=== PATIENT | male | born 1995 | race Caucasian/White ===

== ENCOUNTER 2017-07-14 00:35 | Emergency (ER) | payer OTHER, SELFPAY ==
[2017-07-14] MEDS: LORazepam 1 MG TAB PO (01:27)
== END 2017-07-14 01:57 | disposition home or self-care (01) ==
LOC: M ED 00:35
DX: T39.311A Poisoning by propionic acid derivatives, accidental (unintentional), initial encounter (principal); Y92.9 Unspecified place or not applicable; Y93.9 Activity, unspecified; R00.0 Tachycardia, unspecified; G43.909 Migraine, unspecified, not intractable, without status migrainosus; F17.200 Nicotine dependence, unspecified, uncomplicated; F12.10 Cannabis abuse, uncomplicated
CPT/HCPCS: 93005

== ENCOUNTER 2018-11-03 18:23 | Emergency (ER) | payer OTHER, SELFPAY ==
[~2018-11-03] VITALS: Ht 190.5 cm; Wt 112.6 kg
[2018-11-03 22:33] VITALS: BP 139/76
[2018-11-03] MEDS ORDERED: IBUP-1022 PO (23:05)
[2018-11-03] MEDS ORDERED: IBUPROFEN 600 MG TAB PO ONE (23:15)
--- NOTE | 2018-11-04 07:21 | REP ---
Clinical: Trauma. Technique: AP, lateral, bilateral oblique views of the right hand. Findings: There is a transverse mildly angulated fracture through the mid fifth metacarpal shaft with overlying soft tissue swelling (boxer's fracture). No other fracture dislocation. Impression: Boxer's fracture of the fifth metacarpal bone. Electronically Signed by Salinas Olmedo MD 11/03/2018 06:46 P
== END 2018-11-03 23:15 | disposition home or self-care (01) ==
LOC: M ED 18:23
DX: S62.398A Other fracture of other metacarpal bone, initial encounter for closed fracture (principal); W22.8XXA Striking against or struck by other objects, initial encounter; Y92.099 Unspecified place in other non-institutional residence as the place of occurrence of the external cause; Y93.9 Activity, unspecified; Y99.9 Unspecified external cause status; F17.200 Nicotine dependence, unspecified, uncomplicated

== ENCOUNTER → 2019-04-18 | Outpatient (REF) | payer OTHER ==
[~2019-04-18] MED LIST: IBUP-1022 PO
[2019-04-18 17:08] LABS: INFLUENZA A AMPLIFICATION NEGATIVE (NEGATIVE); INFLUENZA B AMPLIFICATION POSITIVE (NEGATIVE)
== END ==
LOC: M LAB REF 16:13
PROVIDERS: ATTEND Physician Assistant
DX: J11.1 Influenza due to unidentified influenza virus with other respiratory manifestations (principal)

== ENCOUNTER 2019-10-25 21:51 | Emergency (ER) | payer OTHER ==
[~2019-10-25] VITALS: Ht 190.5 cm; Wt 112.8 kg
[2019-10-26] MEDS ORDERED: BENZOCAINE 10% 9GM TUBE (ANBESOL) TOP STA (00:55)
[2019-10-26] MEDS ORDERED: AUGM875T28 PO (00:58)
[2019-10-26] MEDS ORDERED: SELE25SHA TOP (00:58)
[2019-10-26] MEDS ORDERED: AUGMENTIN 875 MG TAB PO ONE (01:00)
[2019-10-26 01:14] VITALS: BP 149/87
== END 2019-10-26 01:21 | disposition home or self-care (01) ==
LOC: M ED 21:51
DX: K04.7 Periapical abscess without sinus (principal); B36.0 Pityriasis versicolor

== ENCOUNTER → 2021-12-29 | Outpatient (REF) | payer OTHER ==
[~2021-12-29] MED LIST changes: +AUGM875T28 PO; +SELE25SHA TOP
[2021-12-29 17:33] LABS: BASO % 0.4 % (0.0-1.0); EOS % 0.4 % (0.0-3.0); HEMATOCRIT 46.5 % (42.0-52.0); HEMOGLOBIN 15.5 g/dl (13.5-17.5); LYMPH # 1.6 10^3/uL (1.5-5.0); MEAN CORPUSCULAR HEMOGLOBIN 29.6 pg (27.0-33.0); MEAN CORPUSCULAR HGB CONC 33.3 g/dl (32.0-36.5); MEAN CORPUSCULAR VOLUME 88.7 fl (80.0-96.0); MONO # 0.6 10^3/uL (0.0-0.8); MONO % 6.2 % (2.0-8.0); NEUTROPHILS # 7.5 10^3/uL (1.5-8.5); NEUTROPHILS % 76.7 % (36.0-66.0); PLATELET COUNT, AUTOMATED 298 10^3/uL (150-450); RED BLOOD COUNT 5.24 10^6/uL (4.30-6.10); WHITE BLOOD COUNT 9.7 10^3/uL (4.0-10.0)
[2021-12-29 18:18] LABS: ALBUMIN 4.4 GM/DL (3.2-5.2); ALT/SGPT 39 U/L (12-78); BILIRUBIN,TOTAL 0.6 MG/DL (0.2-1.0); BLOOD UREA NITROGEN 12 MG/DL (7-18); CALCIUM LEVEL 9.6 MG/DL (8.5-10.1); CARBON DIOXIDE LEVEL 28 MEQ/L (21-32); CHLORIDE LEVEL 102 MEQ/L (98-107); CHOLESTEROL LEVEL 158 MG/DL (<200); CHOLESTEROL RISK RATIO 4.388 (<5); CREATININE FOR GFR 0.87 MG/DL (0.70-1.30); GLOMERULAR FILTRATION RATE > 60.0 (>60); GLUCOSE, FASTING 90 MG/DL (70-100); HDL CHOLESTEROL 36 MG/DL (>40); LDL CHOLESTEROL 100 MG/DL (<100); NON-HDL-C 122 MG/DL; POTASSIUM SERUM 4.6 MEQ/L (3.5-5.1); SODIUM LEVEL 135 MEQ/L (136-145); TOTAL PROTEIN 7.8 GM/DL (6.4-8.2); TRIGLYCERIDES LEVEL 108 MG/DL (<150)
== END ==
LOC: M LAB REF 16:41
PROVIDERS: ATTEND Family Medicine Addiction Medicine
DX: Z00.00 Encounter for general adult medical examination without abnormal findings (principal)

== ENCOUNTER 2022-01-28 12:09 | Inpatient (IN) | payer MEDICAID, OTHER ==
[~2022-01-28] VITALS: Ht 190.5 cm; Wt 107.3 kg
[2022-01-28 14:46] LABS: HEMOGLOBIN 15.5 g/dl (13.5-17.5); MEAN CORPUSCULAR HGB CONC 34.4 g/dl (32.0-36.5); MEAN CORPUSCULAR VOLUME 87.2 fl (80.0-96.0); PLATELET COUNT, AUTOMATED 282 10^3/uL (150-450); RED BLOOD COUNT 5.16 10^6/uL (4.30-6.10); WHITE BLOOD COUNT 12.9 10^3/uL (4.0-10.0)
[2022-01-28 15:04] LABS: AMPHETAMINES LEVEL URINE NEGATIVE (NEGATIVE); BARBITURATES URINE NEGATIVE (NEGATIVE); BENZODIAZEPINES URINE NEGATIVE (NEGATIVE); COCAINE METABOLITE URINE NEGATIVE (NEGATIVE); PHENCYCLIDINE URINE NEGATIVE (NEGATIVE)
[2022-01-28 15:05] LABS: METHADONE URINE NEGATIVE (NEGATIVE); OPIATES URINE NEGATIVE (NEGATIVE)
[2022-01-28 15:06] LABS: ETHYL ALCOHOL (ETHANOL) 0.003 % (0.000-0.010)
[2022-01-28 15:07] LABS: BILIRUBIN,DIRECT 0.2 MG/DL (<0.4); CANNABINOIDS URINE POSITIVE (NEGATIVE)
[2022-01-28 15:08] LABS: ACETAMINOPHEN LEVEL < 2.0 UG/ML (10.0-20.0); ALBUMIN 4.4 G/DL (3.2-5.2); ALKALINE PHOSPHATASE 67 U/L (46-116); ALT/SGPT 43 U/L (7.0-40); AST/SGOT 25 U/L (<34); BILIRUBIN,TOTAL 0.6 MG/DL (0.3-1.2); BLOOD UREA NITROGEN 11 MG/DL (9-23); CALCIUM LEVEL 9.4 MG/DL (8.5-10.1); CARBON DIOXIDE LEVEL 28 MMOL/L (20-31); CHLORIDE LEVEL 104 MMOL/L (98-107); CREATININE FOR GFR 0.69 MG/DL (0.70-1.30); GLOMERULAR FILTRATION RATE > 60.0 (>60); GLUCOSE, FASTING 99 MG/DL (60-100); POTASSIUM SERUM 4.7 MMOL/L (3.5-5.1); SALICYLATE LEVEL < 3.0 MG/DL (<30); SODIUM LEVEL 139 MMOL/L (136-145); TOTAL PROTEIN 7.6 G/DL (5.7-8.2)
[2022-01-28 15:10] LABS: THYROID STIMULATING HORMONE 3.162 uIU/ML (0.55-4.78)
[2022-01-28 15:19] LABS: RSV AMPLIFICATION NEGATIVE (NEGATIVE)
[2022-01-28] MEDS ORDERED: HOME MED LIST COMPLETE! XX SCH (17:05)
[2022-01-28] MEDS ORDERED: MOM 30ML SUSPENSION UDC PO PRN (20:25)
[2022-01-28] MEDS ORDERED: OLANZapine ORAL DISINTEGRATING TAB 5MG PO PRN (20:25)
[2022-01-28] MEDS ORDERED: MAALOX 30 ML SUSP *UDC PO PRN (20:25)
[2022-01-28] MEDS ORDERED: ACETAMINOPHEN TAB 650MG DOSE (2X325MG) PO PRN (20:25)
[2022-01-28] MEDS ORDERED: traZODone 50 MG TAB PO PRN (20:25)
[2022-01-28 23:59] VITALS: BP 126/79
[2022-01-29 06:32] VITALS: BP 126/66
[2022-01-30 06:35] VITALS: BP 109/59
[2022-01-30 18:13] VITALS: BP 139/74
[2022-01-31 06:00] VITALS: BP 119/68
[2022-01-31 18:20] VITALS: BP 136/72
[2022-02-01 07:01] VITALS: BP 153/73
[2022-02-01 18:00] VITALS: BP 140/67
[2022-02-02 06:58] VITALS: BP 133/73
[2022-02-02] MEDS ORDERED: TRAZ-252 PO (10:02)
== END 2022-02-02 12:40 | disposition home or self-care (01) | DRG 754 ==
LOC: M ED 12:09 → M ED INP 20:22 → M PSY 22:28
PROVIDERS: ADMIT Psychiatry & Neurology Psychiatry; ATTEND Psychiatry & Neurology Psychiatry
DX: F32.A Depression, unspecified (principal); R45.851 Suicidal ideations; F12.90 Cannabis use, unspecified, uncomplicated; D72.829 Elevated white blood cell count, unspecified; F17.200 Nicotine dependence, unspecified, uncomplicated

== ENCOUNTER 2022-02-26 16:05 | Emergency (ER) | payer MEDICAID ==
[~2022-02-26] VITALS: Ht 190.5 cm; Wt 109.0 kg
[~2022-02-26 16:05] MED LIST changes: +TRAZ-252 PO
[2022-02-26 21:39] VITALS: BP 137/64
[2022-02-26 22:02] LABS: GC DNA AMPLIFICATION NEGATIVE (NEGATIVE)
== END 2022-02-26 21:45 | disposition home or self-care (01) ==
LOC: M ED 16:05
DX: N52.9 Male erectile dysfunction, unspecified (principal)

== ENCOUNTER 2022-07-12 18:19 | Emergency (ER) | payer MEDICAID ==
[~2022-07-12] VITALS: Ht 190.5 cm; Wt 101.8 kg
[2022-07-12 18:20] VITALS: BP 186/93
== END 2022-07-13 01:13 | disposition left against medical advice (07) ==
LOC: M ED 18:19
DX: Z53.21 Procedure and treatment not carried out due to patient leaving prior to being seen by health care provider (principal)

== ENCOUNTER 2023-12-11 10:51 | Emergency (ER) | payer MEDICAID, OTHER, SELFPAY ==
[~2023-12-11] VITALS: Ht 190.5 cm; Wt 115.1 kg
[2023-12-11 10:56] VITALS: BP 142/93; TEMP 97.1; O2SAT 99
== END 2023-12-11 13:04 | disposition home or self-care (01) ==
LOC: M ED 10:51
DX: J06.9 Acute upper respiratory infection, unspecified (principal); F17.200 Nicotine dependence, unspecified, uncomplicated

== ENCOUNTER 2024-06-30 19:30 | Emergency (ER) | payer SELFPAY ==
[~2024-06-30] VITALS: Ht 190.5 cm; Wt 124.9 kg
[2024-06-30] MEDS: ACETAMINOPHEN 500 MG TAB PO ONE (23:18)
[2024-07-01] MEDS ORDERED: ACET-683 PO (01:18)
[2024-07-01] MEDS ORDERED: DELS1LIQ3 PO (01:18)
[2024-07-01] MEDS ORDERED: FLON1SPR NARES (01:18)
[2024-07-01] MEDS ORDERED: OSEL75CA PO (01:18)
[2024-07-01] MEDS ORDERED: PSEU30TA87 PO (01:18)
[2024-07-01 01:21] VITALS: BP 120/68; TEMP 99; O2SAT 96
== END 2024-07-01 01:38 | disposition home or self-care (01) ==
LOC: M ED 19:30
DX: J09.X2 Influenza due to identified novel influenza A virus with other respiratory manifestations (principal); Z20.89 Contact with and (suspected) exposure to other communicable diseases; G43.909 Migraine, unspecified, not intractable, without status migrainosus; F41.9 Anxiety disorder, unspecified; F32.A Depression, unspecified; F17.200 Nicotine dependence, unspecified, uncomplicated; F12.10 Cannabis abuse, uncomplicated